=== PATIENT | male | born 1995 | race Caucasian/White ===

== ENCOUNTER 2023-01-06 10:21 | Outpatient (CLI) | payer OTHER, SELFPAY ==
--- NOTE | ~2023-01-06 | MR_ITS ---
EXAMINATION: MR brain/brain stem wo/w con DATE: 01/06/2023 11:10 INDICATION: Cyst of pineal gland. TECHNIQUE: Magnetic resonance imaging (MRI) of the brain and brainstem was performed without and with 18 mL MultiHance intravenous contrast. 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 There is no intracranial hemorrhage, acute infarction, or abn ormal intracranial mass lesion. The ventricles are normal in size. The orbits are normal. The mastoid air cells are normal. The paranasal sinuses are clear. IMPRESSION: 1. No abnormal pineal cyst identified. Reviewed, dictated and finalized at location A.
== END 2023-01-06 10:22 ==
PROVIDERS: PCP Nurse Practitioner; Visit Provider Nurse Practitioner
DX: E34.8 Other specified endocrine disorders (principal)
CPT/HCPCS: 70553; A9577